=== PATIENT | male | born 2000 | race Caucasian/White ===

== ENCOUNTER 2025-01-18 16:34 | Emergency (ER) | payer SELFPAY ==
[~2025-01-18] VITALS: Ht 167.6 cm; Wt 73.0 kg
[2025-01-18 17:13] LABS: BASOPHILS % 0.5 % (0.0-2.0); EOSINOPHILS % 0.9 % (0.0-5.0); HEMATOCRIT. 40.3 % (42.0-52.0); HEMOGLOBIN. 13.3 g/dL (14.0-18.0); LYMPHOCYTES % 39.9 % (20.0-50.0); MEAN CORPUSCULAR HEMOGLOBIN 29.2 pg (28.0-32.0); MEAN CORPUSCULAR HGB CONC 32.9 g/dL (31.0-37.0); MEAN CORPUSCULAR VOLUME 88.8 fL (80.0-94.0); MEAN PLATELET VOLUME 6.8 fl (7.4-10.4); MONOCYTES % 7.7 % (2.0-8.0); PLATELET 351 x1000/uL (130-400); RED BLOOD CELL COUNT 4.54 mill/uL (4.7-6.1); RED CELL DISTRIBUTION WIDTH 13.6 % (11.6-14.6)
[2025-01-18] MEDS: NALOXONE HCL 0.4MG/ML 1ML VIAL IV ONE (17:14)
[2025-01-18] MEDS: SODIUM CHLORIDE 0.9% 1,000 ML IV ONE ×3 (17:14→20:18)
[2025-01-18] MEDS: ONDANSETRON HCL 4MG/2ML INJ IV ONE (17:18)
[2025-01-18 17:19] LABS: CHLORIDE 102 mEq/L (98-107); POTASSIUM 3.3 mEq/L (3.5-5.1); SODIUM 136 mEq/L (136-145)
[2025-01-18 17:20] LABS: CALCIUM 9.1 mg/dL (8.7-10.4); CARBON DIOXIDE 25 mEq/L (21-32)
[2025-01-18 17:25] LABS: CREATININE 0.9 mg/dL (0.6-1.3); GLUCOSE 125 mg/dL (70-105); UREA NITROGEN BLOOD 9 mg/dL (9-23)
[2025-01-18 17:27] LABS: ACETAMINOPHEN < 2 ug/mL (10-30)
[2025-01-18 17:34] LABS: CLARITY URINE CLEAR (CLEAR); GLUCOSE URINE NEGATIVE (NEGATIVE); KETONES URINE NEGATIVE (NEGATIVE); LEUKOCYTE ESTERASE URINE NEGATIVE (NEGATIVE); NITRITE URINE NEGATIVE (NEGATIVE); OCCULT BLOOD URINE 1+ (NEGATIVE); PROTEIN URINE NEGATIVE (NEGATIVE); SPECIFIC GRAVITY URINE 1.004 (1.005-1.030); UROBILINOGEN URINE 0.2 E.U./dL (0.2-1.0)
[2025-01-18 17:35] LABS: ETHANOL BLOOD 369 mg/dL (<10)
[2025-01-18 17:47] LABS: *AMPHETAMINES SCREEN URINE NEGATIVE (NEGATIVE); *BARBITURATES SCREEN URINE NEGATIVE (NEGATIVE); *BENZODIAZEPINES SCREEN URINE PRESUMPTIVE POSITIVE (NEGATIVE); *COCAINE SCREEN URINE NEGATIVE (NEGATIVE); CANNABINOID URINE SCREEN NEGATIVE (NEGATIVE); ECSTASY MDMA SCREEN URINE NEGATIVE (NEGATIVE); METHADONE URINE SCREEN NEGATIVE (NEGATIVE); OPIATES URINE SCREEN NEGATIVE (NEGATIVE); PHENCYCLIDINE URINE SCREEN NEGATIVE (NEGATIVE)
[2025-01-18 17:56] LABS: COLOR URINE PALE YELLOW (YELLOW)
[2025-01-18 17:57] LABS: BACTERIA URINE NONE SEEN; RBC URINE NONE SEEN /hpf (0-2); SQUAMOUS EPITHELIAL CELL URINE NONE SEEN /lpf (RARE/1+); WBC URINE NONE SEEN /hpf (0-2)
[2025-01-18] MEDS ORDERED: LORAZEPAM 2MG/ML INJ IM ONE (21:00)
[2025-01-18] MEDS: LORAZEPAM 2MG/ML UD SYRINGE IM NR (21:32)
[2025-01-18] MEDS: HALOPERIDOL LACTATE 5MG/ML VIAL IM ONE (21:32)
[2025-01-19] MEDS: MORPHINE SULFATE 4 MG/ML INJ (FOR IV/IM USE) IV STA (04:16)
[2025-01-19 06:11] VITALS: BP 130/70; PULSE 80; RESP 18; TEMP 36.8; O2SAT 100
== END 2025-01-19 06:12 | disposition home or self-care (01) ==
LOC: EDBD 16:34 → ER 16:34
DX: T51.0X1A Toxic effect of ethanol, accidental (unintentional), initial encounter (principal); G93.40 Encephalopathy, unspecified; Z79.899 Other long term (current) drug therapy; Z98.890 Other specified postprocedural states; Y92.89 Other specified places as the place of occurrence of the external cause
CPT/HCPCS: 80305; 80048; 81003; 80307; 80329; 80320; 85025; 36415; 71045; 96361; 96372; 96374; 99285; J1630; J2060; J2405; J7030; Z7610 ×5; G0480